=== PATIENT | male | born 1975 | race Hispanic/Latino ===

== ENCOUNTER 2020-09-07 06:29 | Day surgery (SDC) | payer BC ==
[2020-09-06 16:40] LABS: BASOPHILS % (AUTO) 0.5 % (0.0-5.0); EOSINOPHILS % (AUTO) 0.1 % (0.0-8.0); LYMPHOCYTES % (AUTO) 9.8 % (21.0-51.0); MEAN CORPUSCULAR HEMOGLOBIN 29.4 pg (27.0-33.0); MEAN CORPUSCULAR HGB CONC 35.1 g/dL (32.0-36.0); MEAN CORPUSCULAR VOLUME 83.8 fL (79-99); MONOCYTES % (AUTO) 2.9 % (3.0-13.0); NEUTROPHILS % (AUTO) 86.5 % (40.0-77.0); PLATELET COUNT (AUTO) 283 K/uL (130-400); RED BLOOD CELL COUNT(AUTO) 5.61 MIL/uL (4.50-6.20); RED CELL DISTRIBUTION WIDTH 12.1 % (11.0-15.5); WHITE BLOOD COUNT (AUTO) 8.2 K/uL (4.8-10.8)
[2020-09-06 16:56] LABS: INR 1.01 (0.85-1.15)
[2020-09-06 16:57] LABS: PARTIAL THROMBOPLASTIN TIME 30.5 SEC (26.3-35.5)
[2020-09-06 17:01] VITALS: BP 140/95
[~2020-09-07] VITALS: Ht 165.1 cm; Wt 83.5 kg
[2020-09-07] VITALS (22 sets, daily range): BP systolic 105–142; BP diastolic 59–97
[~2020-09-07 06:29] MED LIST: CEFAZOLIN SODIUM 1 GM VIAL IVP SCH
[2020-09-07] MEDS ORDERED: LACTATED RINGERS 1000ML 1,000 ML IV ONE (07:07)
[2020-09-07] MEDS ORDERED: FENTANYL CITRATE PF 50 MCG/1 ML 2ML VIAL ONE ×2 (07:30→09:21)
[2020-09-07] MEDS ORDERED: LIDOCAINE PF 2% 5ML ABBOJECT ONE (07:30)
[2020-09-07] MEDS ORDERED: PROPOFOL 10 MG/ML 20ML VIAL IV ONE (07:30)
[2020-09-07] MEDS ORDERED: MIDAZOLAM HCL 1 MG/ML 2ML VIAL ONE (07:30)
[2020-09-07] MEDS ORDERED: SUCCINYLCHOLINE 200MG/10ML SYR ONE (07:30)
[2020-09-07] MEDS ORDERED: AMOX1TAB16 PO (07:50)
[2020-09-07] MEDS ORDERED: IBUP-2070 PO (07:50)
[2020-09-07] MEDS ORDERED: LOSA1TAB37 PO (07:50)
[2020-09-07] MEDS ORDERED: METH4TAB16 PO (07:50)
[2020-09-07] MEDS ORDERED: OXYMETAZOLINE HCL SPRAY 15 ML BOTTLE ONE (07:51)
[2020-09-07] MEDS ORDERED: LIDOCAINE 1%-EPI 1:100,000 20 ML VIAL IJ ONE (08:38)
[2020-09-07] MEDS ORDERED: ROCURONIUM 10MG/1ML SYR 10 MG/ML ML ONE (08:39)
[2020-09-07] MEDS ORDERED: GLYCOPYRROLATE 1 MG/5 ML SYRINGE ONE (09:59)
[2020-09-07] MEDS ORDERED: NEOSTIGMINE 5MG/5ML SYR IV ONE (09:59)
[2020-09-07] MEDS ORDERED: KETOROLAC TROMETHAMINE 30MG/ML ONE ×3 (10:01→10:16)
[2020-09-07] MEDS ORDERED: ONDANSETRON HCL 4 MG/2 ML VIAL ONE ×2 (10:01→11:32)
[2020-09-07] MEDS ORDERED: DEXAMETHASONE SOD PHOSPHATE 10MG/ML 1ML VIAL ONE (10:01)
== END 2020-09-07 14:30 | disposition home or self-care (01) ==
LOC: DAH 06:29
PROVIDERS: ATTEND Otolaryngology
DX: T18.0XXA Foreign body in mouth, initial encounter (principal); S01.502A Unspecified open wound of oral cavity, initial encounter; Z20.822 Contact with and (suspected) exposure to COVID-19; R04.0 Epistaxis; I10 Essential (primary) hypertension; Z79.01 Long term (current) use of anticoagulants; Z80.9 Family history of malignant neoplasm, unspecified; Z72.89 Other problems related to lifestyle; Z90.49 Acquired absence of other specified parts of digestive tract; X58.XXXA Exposure to other specified factors, initial encounter
CPT/HCPCS: 36415; 41009; 70110; 70150; 71045; 85025; 85610; 85730; 87426; 93005; A4215; A4216; A4221; A4222; A4223; A4335; A4606; A4663; A6260; A6402; A7002; J0330; J0690; J1100; J1885; J2001; J2250; J2405 ×2; J2704; J2710; J3010 ×2; J3490 ×2; J7120